=== PATIENT | male | born 1970 | race Two or more races ===

== ENCOUNTER 2024-08-18 23:10 | Emergency (ER) | payer OTHER, SELFPAY ==
[2024-08-18 23:16] VITALS: PULSE 78; RESP 15; O2SAT 99
[2024-08-18] MEDS: GLUCAGON INJ 1 MG VIAL IVP (23:32)
[2024-08-18 23:50] LABS: Basophils % (Auto) 1 % (0-2.5); Eosinophils # (Auto) 0.1 Thou/mm3 (0.0-0.5); Eosinophils % (Auto) 1 % (0-10); Hematocrit 42.7 % (41.0-53.0); Hemoglobin 15.3 g/dL (13.5-16.0); Immature Granulocytes % (Auto) 0 % (0-0); Immature Granulocytes Auto 0.02 Thou/mm3 (0.00-0.00); Lymphocytes # (Auto) 1.8 Thou/mm3 (1.0-4.8); Lymphocytes % (Auto) 31 % (10-50); Mean Corpuscular HGB Conc 35.8 g/dl (31.0-37.0); Mean Corpuscular Hemoglobin 29.2 pg (25.0-35.0); Mean Corpuscular Volume 82 fL (80-100); Monocytes # (Auto) 0.8 Thou/mm3 (0.0-0.8); Monocytes % (Auto) 13 % (0-12); Neutrophils # (Auto) 3.1 Thou/mm3 (1.8-7.7); Neutrophils % (Auto) 54 % (37-80); Nucleated Red Blood Cell % 0 /100 WBC (0); Platelet Count 192 Thou/mm3 (140-440); RDW Standard Deviation 36.8 fL (35.1-43.9); Red Blood Count 5.24 Miln/mm3 (4.50-5.90); White Blood Count 5.9 Thou/mm3 (3.8-10.6)
--- NOTE | 2024-08-18 23:51 | EDNOTE_ITS ---
ED General RME/HPI General Chief complaint: Dental/Oral/Throat Stated complaint: POST CHOKING Arrival date/time: 08/18/24 23:10 RME / HPI RME / HPI narrative: This section includes all my notes and documentations, including HPI, PE, and ED course. Terry Rasmussen MD HPI: 54-year-old male here to be evaluated with food stuck in his throat. Occurred just prior to arrival while eating [place] [employer]. Has trouble even swallowing his saliva. No other complaints. ROS: Gastrointestinal: negative except as documented in HPI. Skin: negative except as documented in HPI. Neurological: negative except as documented in HPI. Physical Exam: General: Alert and oriented. Appears uncomfortable, drooling. Eyes: Conjunctivae and lids clear. ENT: No nasal congestion. Patent airway. Neck: Supple. Heart: RRR. Lungs: No respiratory distress. Good air movement. No rhonchi, wheezing, rales. Abdomen: Soft and nontender. Normal bowel sounds. No distension. No rebound or guarding. Skin: Warm and dry. Neuro: Alert and oriented X 3. Before diagnostic tests, Zofran and glucagon and famotidine and Protonix given. I reviewed all diagnostic test results. My review of the neck and chest CT report is no acute findings. Blood tests unremarkable. Patient felt much better with fluid bolus resolved. Recommended more outpatient care. Based on my best medical judgment, made decision no further evaluation or treatment indicated at this time. Patient understands and agrees to the discharge instructions customized and printed, see below. Discharge instructions from Dr. Rasmussen: 1. After evaluation, the food stuck in your throat went down into your stomach. 2. But you will have some pain for a few days. 3. For healing, take omeprazole every morning and famotidine every night for 7 days then as needed. 4. Zofran for nausea/vomiting. 5. See a private doctor on 08/21/2024 for recheck. To make sure there is no serious condition, ask for help with more investigation not available here in the ER. Such as EGD or scoping the stomach, colonoscopy or scoping the colon, and referral to see assistant city attorney. 6. Seek immediate medical care with worsening or with any concerns. Terry Rasmussen MD Related Data Home Medications ?Medication ?Instructions ?Recorded ?Confirmed tamsulosin 0.4 mg capsule 0.4 mg PO QHS 10/07/22 02/14/24 Previous Rx's ?Medication ?Instructions ?Recorded famotidine 40 mg tablet 40 mg PO QDAY #30 tabs 08/19/24 famotidine 40 mg tablet 40 mg PO QDAY #30 tabs 08/19/24 omeprazole 40 mg capsule,delayed 40 mg PO QDAY #30 caps 08/19/24 release omeprazole 40 mg capsule,delayed 40 mg PO QDAY #30 caps 08/19/24 release ondansetron 4 mg disintegrating 4 mg PO TID PRN nausea and 08/19/24 tablet vomiting 5 days #10 tabs ondansetron 4 mg disintegrating 4 mg PO TID PRN nausea and 08/19/24 tablet vomiting 5 days #10 tabs Allergies Allergy/AdvReac Type Severity Reaction Status Date / Time No Known Allergies Allergy Verified 05/04/24 15:13 Course Quality Measures none Orders Category Date Time Status CT Screening NOW Care 08/18/24 23:[address] soft tissue neck chest w Stat Exams 08/19/24 00:24 Taken CBC Stat Lab 08/18/24 23:39 Completed CMP [Comprehensive Metabolic Panel] Stat Lab 08/18/24 23:39 Completed Magnesium Stat Lab 08/18/24 23:39 Completed Famotidine Inj [Pepcid Inj] Med 08/19/24 01:57 Discontinued 20 mg IVP X1 ONE Glucagon Inj Med 08/18/24 23:28 Discontinued 1 mg IVP X1 ONE Ondansetron Inj [Zofran Inj] Med 08/18/24 23:28 Discontinued 4 mg IV X1 ONE Pantoprazole Inj [Protonix Inj] Med 08/19/24 01:57 Discontinued 40 mg IV X1 ONE Vital Signs Vital signs: Vital Signs Pulse Rate 72 08/18/24 23:59 Respiratory Rate 14 08/18/24 23:59 Blood Pressure 123/79 08/18/24 23:59 Pulse Oximetry (%) 96 08/18/24 23:59 Oxygen Delivery Method Room Air 08/18/24 23:59 [facility] Patient data External records reviewed:: [facility] previous records Clinical information provided by:: patient Social determinants that could affect healthcare access:: none Patient has the following chronic illnesses:: See chart How is presenting disease/condition affected by chronic disease/condition?: u neffected by Evaluation data The following diagnostics were reviewed and interpreted by me:: lab results and radiology exam(s) Lab and/or radiology exams considered but not ordered:: None Interpretation Summary: Food bolus resolved Medications Medications considered but not ordered:: None Medication administrations:: Medication Administration History Discontinued Medications Famotidine (Famotidine Inj 10 Mg/Ml Vial 2 Ml) 20 mg IVP X1 ONE Stop: 08/19/24 01:58 Last Admin: 08/19/24 02:03 Dose: 20 mg Documented By: TC Glucagon (Glucagon Inj 1 Mg Vial) 1 mg IVP X1 ONE Stop: 08/18/24 23:29 Last Admin: 08/18/24 23:32 Dose: 1 mg Documented By: TC Ondansetron HCl (Ondansetron Inj 2 Mg/Ml Inj 2 Ml) 4 mg IV X1 ONE; Protocol Stop: 08/18/24 23:29 Last Admin: 08/18/24 23:54 Dose: 4 mg Documented By: TC Pantoprazole Sodium (Pantoprazole Inj 40 Mg Vial) 40 mg IV X1 ONE Stop: 08/19/24 01:58 Last Admin: 08/19/24 02:03 Dose: 40 mg Documented By: RADHA Glucagon and Zofran and famotidine and omeprazole Consultations Consultation(s) initiated? (list below): No Diagnosis Differential Diagnosis ED Complaint MDM: Food bolus, GERD, dysphagia Most likely diagnosis given after review of the tests above:: Food bolus (resolved) Admission Indicated Admission indicated?: not indicated Explain why admission is indicated or not indicated:: No admission criteria Admission Request Was there a request for admission?: No Disposition Plan Disposition Plan: Discharge Discharge Attestation Discharge Attestation: The patient and all family members were given an opportunity to ask questions and understood the discharge instructions. Discharge instructions specifically effects, indications for sooner follow up or return to the emergency department, and the expected course of current diagnosis. Patient condition: Stable Medical Decision Making Differential Diagnosis Differential Diagnosis: Food bolus, GERD, dysphagia Lab Data 08/18/24 23:39 08/18/24 23:39 Labs: Lab Results 08/18/24 Range/Units 23:39 WBC 5.9 (3.8-10.6) Thou/mm3 RBC 5.24 (4.50-5.90) Miln/mm3 Hgb 15.3 (13.5-16.0) g/dL Hct 42.7 (41.0-53.0) % MCV 82 (80-100) fL MCH 29.2 (25.0-35.0) pg MCHC 35.8 (31.0-37.0) g/dl RDW Std Deviation 36.8 (35.1-43.9) fL Plt Count 192 (140-440) Thou/mm3 Neut % (Auto) 54 (37-80) % Lymph % (Auto) 31 (10-50) % [place] % (Auto) 13 H (0-12) % Eos % (Auto) 1 (0-10) % Baso % (Auto) 1 (0-2.5) % Neut # (Auto) 3.1 (1.8-7.7) Thou/mm3 Lymph # (Auto) 1.8 (1.0-4.8) Thou/mm3 [place] # (Auto) 0.8 (0.0-0.8) Thou/mm3 Eos # (Auto) 0.1 (0.0-0.5) Thou/mm3 Baso # (Auto) 0.0 (0.0-0.2) Thou/mm3 Immature Gran # (Auto) 0.02 H (0.00-0.00) Thou/mm3 Absolute Nucleated RBC 0.00 (0.00-0.00) Thou/mm3 Immature Gran % 0 (0-0) % Nucleated RBC % 0 (0) /100 WBC Sodium 138 (136-145) mMol/L Potassium 3.6 (3.4-5.1) mMol/L Chloride 106 (98-107) mMol/L Carbon Dioxide 25.2 (20.0-31.0) mMol/L Anion Gap 7 (7-16) BUN 19 (9-23) mg/dL Creatinine 0.9 (0.6-1.3) mg/dL Estim Creat Clear Calc Not Performed. eGFR > 60 (60 - ) See Note BUN/Creatinine Ratio 21 H (12-20) Ratio Glucose 101 (74-106) mg/dL Calculated Osmolality 277 (275-295) Calcium 9.3 (8.3-10.6) mg/dL Corrected Calcium 9.3 (8.5-10.1) mg/dL Magnesium 1.9 (1.6-2.6) mg/dL Total Bilirubin 1.1 (0.3-1.2) mg/dL AST 24 (0-34) U/L ALT 24 (10-49) U/L Alkaline Phosphatase 67 (46-116) U/L Total Protein 7.2 (5.7-8.2) gm/dL Albumin 4.4 (3.5-5.0) gm/dL Globulin 2.8 (2.3-3.5) gm/dL Albumin/Globulin Ratio 1.6 (1.2-2.2) Discharge Plan Plan Patient Disposition: HOME (Self Care) Prescriptions/Referrals Prescriptions/Med Rec: New famotidine 40 mg tablet 40 mg PO QDAY Qty: 30 0RF omeprazole 40 mg capsule,delayed release(DR/EC) 40 mg PO QDAY Qty: 30 0RF ondansetron 4 mg tablet,disintegrating 4 mg PO TID PRN (Reason: nausea and vomiting) 5 Days Qty: 10 0RF famotidine 40 mg tablet 40 mg PO QDAY Qty: 30 0RF omeprazole 40 mg capsule,delayed release(DR/EC) 40 mg PO QDAY Qty: 30 0RF ondansetron 4 mg tablet,disintegrating 4 mg PO TID PRN (Reason: nausea and vomiting) 5 Days Qty: 10 0RF No Action tamsulosin 0.4 mg capsule 0.4 mg PO QHS Referrals: No Primary/Family,Physician [Primary Care Provider] - In 1 week Problem List Clinical Impression: Dysphagia Patient/Caregiver Discharge Instructions Discharge Activity: activity as tolerated Education Materials: ED Dysphagia (Adult) Additional Instructions: Discharge instructions from Dr. Rasmussen: 1. After evaluation, the food stuck in your throat went down into your stomach. 2. But you will have some pain for a few days. 3. For healing, take omeprazole every morning and famotidine every night for 7 days then as needed. 4. Zofran for nausea/vomiting. 5. See a private doctor on 08/21/2024 for recheck. To make sure there is no serious condition, ask for help with more investigation not available here in the ER. Such as EGD or scoping the stomach, colonoscopy or scoping the colon, and referral to see assistant city attorney. 6. Seek immediate medical care with worsening or with any concerns. Print Language: Bengali Stand Alone Forms: [facility] Award Info., Patient Portal Info Letter
[2024-08-18] MEDS: ONDANSETRON INJ 2 MG/ML INJ 2 ML 4 MG IV (23:54)
[2024-08-18 23:59] VITALS: BP 123/79; PULSE 72; RESP 14; O2SAT 96
[2024-08-19 00:07] LABS: Alanine Aminotransferase 24 U/L (10-49); Albumin, Serum 4.4 gm/dL (3.5-5.0); Albumin/Globulin Ratio 1.6 (1.2-2.2); Alkaline Phosphatase 67 U/L (46-116); Anion Gap 7 (7-16); Aspartate Amino Transferase 24 U/L (0-34); BUN/Creatinine Ratio 21 Ratio (12-20); Bilirubin,Total 1.1 mg/dL (0.3-1.2); Blood Urea Nitrogen 19 mg/dL (9-23); Calcium 9.3 mg/dL (8.3-10.6); Calcium (Corrected) 9.3 mg/dL (8.5-10.1); Carbon Dioxide 25.2 mMol/L (20.0-31.0); Chloride 106 mMol/L (98-107); Creatinine (Component) 0.9 mg/dL (0.6-1.3); Globulin 2.8 gm/dL (2.3-3.5); Glucose 101 mg/dL (74-106); Magnesium 1.9 mg/dL (1.6-2.6); Osmolality,Calculated 277 (275-295); Potassium 3.6 mMol/L (3.4-5.1); Sodium 138 mMol/L (136-145); Total Protein 7.2 gm/dL (5.7-8.2); eGFR > 60 See Note
--- NOTE | 2024-08-19 00:24 | XR_ITS ---
Examination: CT soft tissue neck, with intravenous contrast. CT chest with intravenous contrast 2-D coronal reconstructions. 2-D sagittal reconstructions. Date and time of exam :August 19, 2024 0030 hrs. Indications: Choking episode yesterday with difficulty swallowing today. CTDI: vol (mGy):29 DLP: (mGycm):949 Technique: 1.25 mm axial sections of the neck chest of the obtained. Coronal and sagittal reconstructions have been obtained. Intravenous contrast administered 60 cc Isovue-370. Low dose protocols were performed. One or more of the following dose reduction techniques were used; automated exposure control, adjustment of the mA and/or KV according to patient size, use of iterative reconstruction technique. Findings: Symmetrical optic globes Left maxillary chronic sinus disease Symmetrical nasopharynx oropharynx No opaque foreign body Mild soft tissue tonsillar prominence Symmetrical submandibular glands No pathologic lymphadenopathy The larynx appears normal Thyroid lobes are not enlarged Normal epiglottis There is fluid and air in the cervical esophagus Thoracic aorta pulmonary arteries intact No paratracheal tracheobronchial or bronchopulmonary adenopathy No foreign body in the thoracic esophagus No aspiration pneumonia or pulmonary edema No visualized liver or splenic lesion no gallstones No pancreatic or adrenal mass No opaque foreign body in the stomach Impression: No soft tissue neck mass, there is fluid and air in the cervical esophagus No mediastinal lymphadenopathy No aspiration pneumonia No opaque foreign body in the thoracic esophagus Given the patient's presentation, recommend standard fluoroscopically guided esophagram follow-up
[2024-08-19 00:28] VITALS: BMI 29.0
[2024-08-19 01:18] VITALS: BP 128/80; PULSE 67; RESP 16; TEMP 37; O2SAT 95
--- NOTE | 2024-08-19 01:52 | PRELIM_ITS ---
CT scan of the neck and chest with intravenous contrast (axial sections with sagittal and coronal ref ormats) August 19, 2024 at 0030 hoursClinical History: Choking.Comparison:No prior study is availab le for comparison.Findings: The nasopharynx, oropharynx, hypopharynx, supraglottic and infraglottic l arynx, vocal cords and upper trachea are unremarkable. The epiglottis and aryepiglottic folds appear unremarkable. The superficial soft tissues of the neck are unremarkable.No enhancing lesion or fluid collection is identified. The vessels of the neck are well opacified. No filling defect is seen.The l ungs are clear. There is no pneumothorax or pleural effusion. The aorta is unremarkable. No evidence of mediastinal mass or lymphadenopathy. There is no pericardial effusion.The visualized upper abdomin al viscera are unremarkable.Degenerative changes are identified in the spine.Impression:Unremarkable CT scan of the neck and chest. Report Electronically Signed By: Osbaldo Flores 08/19/2024 1:51:52 AM [E ST]
[2024-08-19] MEDS: PANTOPRAZOLE INJ 40 MG VIAL IV (02:03)
[2024-08-19] MEDS: FAMOTIDINE INJ 10 MG/ML VIAL 2 ML 20 MG IVP (02:03)
[2024-08-19 02:54] VITALS: BP 112/75; PULSE 81; RESP 16; TEMP 36.7; O2SAT 97
== END 2024-08-19 02:56 | disposition home or self-care (01) ==
PROVIDERS: Emergency Provider Emergency Medicine
DX: R13.10 Dysphagia, unspecified (principal)
CPT/HCPCS: 36415; 70491; 71260; 80053; 83735; 85025; 96374; 96375; 99285; A4649; J1610; J2405; J2470; J3490; Q9967

== ENCOUNTER → 2024-11-26 | Outpatient (BNVA) | payer OTHER, SELFPAY | END | disposition home or self-care (01) | PROVIDERS: PCP Registered Nurse; Referring Provider Registered Nurse; Visit Provider Urology | DX: N40.1 Benign prostatic hyperplasia with lower urinary tract symptoms (principal); N13.8 Other obstructive and reflux uropathy; R97.20 Elevated prostate specific antigen [PSA]; N52.9 Male erectile dysfunction, unspecified; Z98.890 Other specified postprocedural states | CPT/HCPCS: 81003; 99212; G0463 ==

== ENCOUNTER → 2025-01-15 | Outpatient (BNVA) | payer OTHER, SELFPAY | END | disposition home or self-care (01) | PROVIDERS: PCP Registered Nurse; Referring Provider Registered Nurse; Visit Provider Physician Assistant | DX: N40.1 Benign prostatic hyperplasia with lower urinary tract symptoms (principal); R97.20 Elevated prostate specific antigen [PSA]; N52.9 Male erectile dysfunction, unspecified | CPT/HCPCS: Q3014 ==